=== PATIENT | female | born 1930 | race Caucasian/White ===

== ENCOUNTER 2016-10-22 12:24 | Emergency (ER) | payer MEDICARE, BC ==
[2016-10-22] MEDS ORDERED: Sodium Chloride 0.9% 1,000 ML IV ONE (12:40)
[2016-10-22] MEDS ORDERED: Sodium Chloride 0.9% 10 ML Syringe FLUSH PRN (12:40)
[2016-10-22] MEDS ORDERED: Sodium Chloride 0.9% 2.5 ML Syringe FLUSH PRN (12:40)
--- NOTE | 2016-10-22 12:46 | EDM.PDOC ---
ED HPI GENERAL MEDICAL PROBLEM - General Chief Complaint: General Stated Complaint: NOT FEELING WELL Time Seen by Provider: 10/22/16 12:32 - History of Present Illness INITIAL COMMENTS - FREE TEXT/NARRATIVE: HISTORY AND PHYSICAL: History of present illness: The patient is an 86 y/o female with a history of hypertension hypercholesterolemia who follows at [facility] with Dr. Marie and who received her influenza vaccine this year but who presents today with complaints of generalized weakness fatigue and malaise which started today. Patient states she had a normal day yesterday and ate and drank normally and said she woke up this morning at all morning and this afternoon has felt very drained and weak. She is not dizzy or lightheaded and does not feel like she is going to pass out she feels like her whole body is weak. There is no one extremity is weaker than the others and she also complains of a slight headache. She does not have a cough or chest pain no shortness of breath no sore throat no abdominal pain no vomiting or diarrhea. She also denies specific neck or back pain. Patient has had no urinary complaints and has had normal bowel movements. The patient is very vague about the symptoms and says she can't identify what is triggering all of this but she just feels unlike herself. Patient had only one glass of water today. Review of systems: As per history of present illness and below otherwise all systems reviewed and negative. Past medical history: As per history of present illness and as reviewed below otherwise noncontributory. Surgical history: As per history of present illness and as reviewed below otherwise noncontributory. Social history: No reported history of drug or alcohol abuse. Family history: As per history of present illness and as reviewed below otherwise noncontributory. Physical exam: General: Well-developed well-nourished female who is nontoxic and speaking clearly in the ER. She moves without assistance and her vital signs were noted by me in triage. It should be noted that her skin temperature feels warmer than her documented temperature. HEENT: Atraumatic, normocephalic, pupils reactive, negative for conjunctival pallor or scleral icterus, mucous membranes tacky, throat clear, neck supple, nontender, trachea midline. There is no cervical adenopathy or nuchal rigidity Lungs: Clear to auscultation, breath sounds equal bilaterally, chest nontender. No work or breathing or sensory muscle use no stridor or wheezing Heart: S1S2, regular rhythm and slightly tachycardic rate on my evaluation, negative for clicks, rubs, or JVD. Abdomen: Soft, nondistended, nontender. Rotund abdomen with slightly hypoactive bowel sounds Negative for masses or hepatosplenomegaly. Negative for costovertebral tenderness. Pelvis: Stable nontender. Genitourinary: Deferred. Rectal: Deferred. Extremities: Atraumatic, negative for cords or calf pain. Neurovascular unremarkable. No pedal edema or leg asymmetry Neuro: Awake, alert, oriented. Cranial nerves II through XII unremarkable. Cerebellum unremarkable. sensory unremarkable throughout. Exam nonfocal. Lower extremities with strength 5/5 bilaterally but dorsi and plantar flexion is intact 5/5 inclusive of the great toe. 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 Back: There is no CVA tenderness and no midline step-offs tenderness defects of the thoracic or lumbar spine Skin: He feels warm to touch but is not hot and there is no rashes or lesions appreciated but skin turgor on the upper extremity seems somewhat diminished Diagnostics: EKG CBC CMP lactic acid blood cultures troponin UA urine culture influenza swab chest x-ray CT scan of the head Therapeutics: IV fluids 1328: This case was discussed with the patient's primary care physician Dr. Brayan Ross at [facility]. He states that all of her workup was normal he will arrange to get her clinic appointment tomorrow to followup with her. He understands that at the current time of our conversation all the testing was normal and it continued to be normal that we will plan for discharge. He says he will followup with her. 1408: All testing results were discussed with the patient and family at bedside. I also discussed with them my conversation with Dr. Marie and that he would be happy to see her in followup tomorrow. They're aware that the patient does not meet criteria for admission as there are no objective diagnoses for that and that I advised his hydration rest and reasons to return to the ED Impression: Generalized weakness etiology unclear Definitive disposition and diagnosis as appropriate pending reevaluation and review of above. - Related Data Allergies Allergy/AdvReac Type Severity Reaction Status Date / Time No Known Allergies Allergy Verified 12/01/15 16:45 Home Meds: Home Meds Diltiazem [Cardizem CD] 180 mg PO DAILY 12/01/15 [History] LORazepam 0.5 tab PO BID PRN 12/01/15 [History] Losartan [Cozaar] 50 mg PO DAILY 12/01/15 [History] Simvastatin [Zocor] 10 mg PO BEDTIME 12/01/15 [History] buPROPion HCl [Zyban] 150 mg PO DAILY 12/01/15 [History] Aspirin [Halfprin] 81 mg PO BRK 12/02/15 [History] Levofloxacin [Levaquin] 250 mg PO Q24H #2 tablet 12/03/15 [Rx] Past Medical History HEENT History: Reports: Impaired vision Cardiovascular History: Reports: High cholesterol, Hypertension Neurological History: Reports: Neuropathy, peripheral, Other (see below) Other Neuro History: Lyme's disease- 5 years ago Psychiatric History: Reports: Anxiety, Depression - Infectious Disease History Infectious Disease History: Reports: Measles, Mumps Other Infectious Disease History: childhood - Past Surgical History HEENT Surgical History: Reports: None Cardiovascular Surgical History: Reports: None GI Surgical History: Reports: Cholecystectomy Neurological Surgical History: Reports: None Social & Family History - Family History Family Medical History: Noncontributory Cardiac: Reports: Hypertension, [place] - Tobacco Use Smoking Status *Q: Never Smoker Second Hand Smoke Exposure: No - Recreational Drug Use Recreational Drug Use: No ED ROS GENERAL - Review of Systems Review Of Systems: ROS reveals no pertinent complaints other than HPI. ED EXAM, GENERAL - Physical Exam Exam: See Below (See dictation) Course - Vital Signs Last Recorded V/S: Last Vital Signs Temp 36.2 C 10/22/16 12:39 Pulse 107 H 10/22/16 12:39 Resp 18 10/22/16 12:39 BP 119/66 10/22/16 12:39 Pulse Ox 93 L 10/22/16 12:39 - Orders/Labs/Meds Orders: Active Orders 24 hr Category Date Time Status Cardiac Monitoring [RC] . DIRECTED Care 10/22/16 12:39 Active EKG Documentation Completion [RC] STAT Care 10/22/16 12:39 Active Oxygen Therapy, ED [RC] ASDIRECTED Care 10/22/16 12:39 Active Pulse Oximetry [RC] ASDIRECTED Care 10/22/16 12:39 Active CULTURE BLOOD [BC] Stat Lab 10/22/16 12:50 Received CULTURE BLOOD [BC] Stat Lab 10/22/16 13:05 Received CULTURE URINE [RM] Stat Lab 10/22/16 13:12 Received Sodium Chloride 0.9% [Saline Flush] Med 10/22/16 12:40 Active 10 ml FLUSH ASDIRECTED PRN Sodium Chloride 0.9% [Saline Flush] Med 10/22/16 12:40 Active 2.5 ml FLUSH ASDIRECTED PRN Blood Culture x2 Reflex Set [OM.PC] Stat Oth 10/22/16 12:40 Ordered Saline Lock Insert [OM.PC] Stat Oth 10/22/16 12:39 Ordered Medication Orders Sodium Chloride (Saline Flush) 10 ml FLUSH ASDIRECTED PRN PRN Reason: Keep Vein Open Sodium Chloride (Saline Flush) 2.5 ml FLUSH ASDIRECTED PRN PRN Reason: Keep Vein Open Labs: Laboratory Tests 10/22/16 10/22/16 10/22/16 Range/Units 12:50 12:50 12:50 WBC 5.88 (4.0-11.0) K/uL RBC 4.20 L (4.30-5.90) M/uL Hgb 12.5 (12.0-16.0) g/dL Hct 38.4 (36.0-46.0) % MCV 91.4 (80.0-98.0) fL MCH 29.8 (27.0-32.0) pg MCHC 32.6 (31.0-37.0) g/dL RDW Std Deviation 45.9 (28.0-62.0) fl RDW Coeff of Kyara 14 (11.0-15.0) % Plt Count 222 (150-400) K/uL MPV 10.90 (7.40-12.00) fL Neut % (Auto) 79.1 (48.0-80.0) % Lymph % (Auto) 13.1 L (16.0-40.0) % [place] % (Auto) 7.1 (0.0-15.0) % Eos % (Auto) 0.5 (0.0-7.0) % Baso % (Auto) 0.2 (0.0-1.5) % Neut # 4.7 (1.4-5.7) K/uL Lymph # 0.8 (0.6-2.4) K/uL [place] # 0.4 (0.0-0.8) K/uL Eos # 0.0 (0.0-0.7) K/uL Baso # 0.0 (0.0-0.1) K/uL Nucleated RBC % 0.0 /100WBC Nucleated RBCs # 0 K/uL Lactate 2.0 (0.20-2.00) mmol/L Sodium 139 (136-146) mmol/L Potassium 4.0 (3.5-5.1) mmol/L Chloride 106 (98-110) mmol/L Carbon Dioxide 23 (21-31) mmol/L BUN 16 (6.0-23.0) mg/dL Creatinine 1.0 (0.6-1.5) mg/dL Est Cr Clr Drug Dosing 33.41 mL/min Estimated GFR (MDRD) 52.6 ml/min Glucose 136 H (60-110) mg/dL Calcium 9.3 (8.8-10.8) mg/dL Total Bilirubin 0.4 (0.1-1.5) mg/dL AST 21 (5-40) IU/L ALT 10 (8-54) IU/L Alkaline Phosphatase 77 (40-150) Troponin I (0.0-0.29) NG/ML Total Protein 7.6 (6.0-8.0) g/dL Albumin 3.9 (3.4-4.8) g/dL Globulin 3.7 H (2.0-3.5) g/dL Albumin/Globulin Ratio 1.1 L (1.3-2.8) Urine Color Urine Appearance Urine pH (5.0-8.0) Ur Specific Mor[place] (1.001-1.035) Urine Protein (NEGATIVE) mg/dL Urine Glucose (UA) (NEGATIVE) mg/dL Urine Ketones (NEGATIVE) mg/dL Urine Occult Blood (NEGATIVE) Urine Nitrite (NEGATIVE) Urine Bilirubin (NEGATIVE) Urine Urobilinogen (<2.0) EU/dL Ur Leukocyte Esterase (NEGATIVE) Urine RBC (0-2/HPF) Urine WBC (0-5/HPF) Ur Epithelial Cells (NONE-FEW) Amorphous Sediment (NEGATIVE) Urine Bacteria (NEGATIVE) 10/22/16 10/22/16 Range/Units 12:50 13:12 WBC (4.0-11.0) K/uL RBC (4.30-5.90) M/uL Hgb (12.0-16.0) g/dL Hct (36.0-46.0) % MCV (80.0-98.0) fL MCH (27.0-32.0) pg MCHC (31.0-37.0) g/dL RDW Std Deviation (28.0-62.0) fl RDW Coeff of Kyara (11.0-15.0) % Plt Count (150-400) K/uL MPV (7.40-12.00) fL Neut % (Auto) (48.0-80.0) % Lymph % (Auto) (16.0-40.0) % [place] % (Auto) (0.0-15.0) % Eos % (Auto) (0.0-7.0) % Baso % (Auto) (0.0-1.5) % Neut # (1.4-5.7) K/uL Lymph # (0.6-2.4) K/uL [place] # (0.0-0.8) K/uL Eos # (0.0-0.7) K/uL Baso # (0.0-0.1) K/uL Nucleated RBC % /100WBC Nucleated RBCs # K/uL Lactate (0.20-2.00) mmol/L Sodium (136-146) mmol/L Potassium (3.5-5.1) mmol/L Chloride (98-110) mmol/L Carbon Dioxide (21-31) mmol/L BUN (6.0-23.0) mg/dL Creatinine (0.6-1.5) mg/dL Est Cr Clr Drug Dosing mL/min Estimated GFR (MDRD) ml/min Glucose (60-110) mg/dL Calcium (8.8-10.8) mg/dL Total Bilirubin (0.1-1.5) mg/dL AST (5-40) IU/L ALT (8-54) IU/L Alkaline Phosphatase (40-150) Troponin I < 0.10 (0.0-0.29) NG/ML Total Protein (6.0-8.0) g/dL Albumin (3.4-4.8) g/dL Globulin (2.0-3.5) g/dL Albumin/Globulin Ratio (1.3-2.8) Urine Color YELLOW Urine Appearance HAZY Urine pH 6.0 (5.0-8.0) Ur Specific [place] 1.015 (1.001-1.035) Urine Protein NEGATIVE (NEGATIVE) mg/dL Urine Glucose (UA) NEGATIVE (NEGATIVE) mg/dL Urine Ketones NEGATIVE (NEGATIVE) mg/dL Urine Occult Blood NEGATIVE (NEGATIVE) Urine Nitrite NEGATIVE (NEGATIVE) Urine Bilirubin NEGATIVE (NEGATIVE) Urine Urobilinogen 0.2 (<2.0) EU/dL Ur Leukocyte Esterase SMALL (NEGATIVE) Urine RBC 0-2 (0-2/HPF) Urine WBC 0-3 (0-5/HPF) Ur Epithelial Cells OCCASIONAL (NONE-FEW) Amorphous Sediment FEW (NEGATIVE) Urine Bacteria FEW (NEGATIVE) Meds: Medications Generic Name Dose Route Start Last Admin Trade Name Freq PRN Reason Stop Dose Admin Sodium Chloride 10 ml 10/22/16 12:40 Saline Flush FLUSH ASDIRECTED PRN Keep Vein Open Sodium Chloride 2.5 ml 10/22/16 12:40 Saline Flush FLUSH ASDIRECTED PRN Keep Vein Open Discontinued Medications Generic Name Dose Route Start Last Admin Trade Name Freq PRN Reason Stop Dose Admin Sodium Chloride 1,000 mls @ 999 mls/hr 10/22/16 12:40 10/22/16 12:53 Normal Saline IV 10/22/16 13:40 999 mls/hr STAT ONE Administration Departure - Departure Time of Disposition: 14:14 Disposition: Home, Self-Care 01 Condition: good Clinical Impression: Generalized weakness Referrals: Vic Bunch MD [Primary Care Provider] - Forms: ED Department Discharge Additional Instructions: The following information is given to patients seen in the emergency department who are being discharged to home. This information is to outline your options for follow-up care. We provide all patients seen in our emergency department with a follow-up referral. The need for follow-up, as well as the timing and circumstances, are variable depending upon the specifics of your emergency department visit. If you don't have a primary care physician on staff, we will provide you with a referral. We always advise you to contact your personal physician following an emergency department visit to inform them of the circumstance of the visit and for follow-up with them and/or the need for any referrals to a consulting specialist. The emergency department will also refer you to a specialist when appropriate. This referral assures that you have the opportunity for followup care with a specialist. All of these measure are taken in an effort to provide you with optimal care, which includes your followup. Under all circumstances we always encourage you to contact your private physician who remains a resource for coordinating your care. When calling for followup care, please make the office aware that this follow-up is from your recent emergency room visit. If for any reason you are refused follow-up, please contact the [facility] emergency department at and ask to speak to the emergency department charge nurse. [address] [place] [address] Please call for followup appointment with her provider in the clinic tomorrow. Please push hydration rest and try to eat healthy meals. Return to ER as needed and as discussed - My Orders Last 24 Hours: My Active Orders 10/22/16 12:39 Cardiac Monitoring [RC] . DIRECTED EKG Documentation Completion [RC] STAT Oxygen Therapy, ED [RC] ASDIRECTED Pulse Oximetry [RC] ASDIRECTED Saline Lock Insert [OM.PC] Stat 10/22/16 12:40 Sodium Chloride 0.9% [Saline Flush] 10 ml FLUSH ASDIRECTED PRN Sodium Chloride 0.9% [Saline Flush] 2.5 ml FLUSH ASDIRECTED PRN Blood Culture x2 Reflex Set [OM.PC] Stat 10/22/16 12:50 CULTURE BLOOD [BC] Stat 10/22/16 13:05 CULTURE BLOOD [BC] Stat 10/22/16 13:12 CULTURE URINE [RM] Stat - Assessment/Plan Last 24 Hours: My Active Orders 10/22/16 12:39 Cardiac Monitoring [RC] . DIRECTED EKG Documentation Completion [RC] STAT Oxygen Therapy, ED [RC] ASDIRECTED Pulse Oximetry [RC] ASDIRECTED Saline Lock Insert [OM.PC] Stat 10/22/16 12:40 Sodium Chloride 0.9% [Saline Flush] 10 ml FLUSH ASDIRECTED PRN Sodium Chloride 0.9% [Saline Flush] 2.5 ml FLUSH ASDIRECTED PRN Blood Culture x2 Reflex Set [OM.PC] Stat 10/22/16 12:50 CULTURE BLOOD [BC] Stat 10/22/16 13:05 CULTURE BLOOD [BC] Stat 10/22/16 13:12 CULTURE URINE [RM] Stat
--- NOTE | 2016-10-22 13:31 | CT ---
EXAMINATION: Non contrast CT head. Coronal and sagittal reformats. HISTORY: Pain FINDINGS: No evidence of intra or extra axial hemorrhage, mass, midline shift, hydrocephalus or edema. There is moderate generalized atrophy. No hypoattenuation changes in the major vascular territories to suggest acute infarct. No abnormal intracranial calcifications are detected. No evidence of substantial vascular calcifications. Paranasal sinuses and mastoid air cells are well aerated without substantial findings. The pituitar y fossa appears unremarkable. The calvarium is intact. No evidence of skull fracture. IMPRESSION: Generalized atrophy without acute intracranial findings.
--- NOTE | 2016-10-22 13:36 | CR ---
EXAMINATION: Two-view chest (PA and Lateral views). HISTORY: Shortness of breath. FINDINGS: The trachea is midline. The cardiomediastinal silhouette is within normal limits. No pulmonary infil trates, effusions or pneumothorax. Osseous structures appear unremarkable. IMPRESSION: No acute cardiopulmonary process.
[2016-10-22 14:29] VITALS: BP 120/63
== END 2016-10-22 14:25 | disposition home or self-care (01) ==
LOC: MW.ED 12:24
DX: R53.1 Weakness (principal); E78.00 Pure hypercholesterolemia, unspecified; H54.7 Unspecified visual loss; I10 Essential (primary) hypertension; Z79.899 Other long term (current) drug therapy; Z79.82 Long term (current) use of aspirin
CPT/HCPCS: 36415; 70450; 71020; 80053; 81001; 83605; 84484; 85025; 87040; 87086; 87088; 87186; 87804; 93005; 96360; 99285; J7040; 99284

== ENCOUNTER 2018-04-04 21:42 | Observation (INO) | payer MEDICARE, BC ==
[2018-04-04] MEDS ORDERED: Sodium Chloride 0.9% 10 ML Syringe FLUSH PRN (21:50)
[2018-04-04] MEDS ORDERED: Sodium Chloride 0.9% 2.5 ML Syringe FLUSH PRN ×2 (21:50)
[2018-04-04] MEDS ORDERED: Sodium Chloride 0.9% 1,000 ML IV ONE ×2 (21:50→22:36)
--- NOTE | 2018-04-04 22:08 | EDM.PDOC ---
ED HPI GENERAL MEDICAL PROBLEM - General Chief Complaint: Lower Extremity Injury/Pain Stated Complaint: CAME BY AMBULANCE Time Seen by Provider: 04/04/18 21:50 Source of Information: Reports: Patient History Limitations: Reports: No Limitations - History of Present Illness INITIAL COMMENTS - FREE TEXT/NARRATIVE: HISTORY AND PHYSICAL: History of present illness: 88-year-old female brought into emergency room by EMS for fall. Patient states that she slipped and fell backwards landing on her right hip. She had immediate pain so-called ambulance for further assessment. She denies any shortness of breath or chest pain prior to or after the event. She did not lose consciousness or hit her head. She fell from a standing position. There appears to be shorting and externally rotation of right lower extremity. Neurovascular intact. Review of systems: As per history of present illness and below otherwise all systems reviewed and negative. Past medical history: As per history of present illness and as reviewed below otherwise noncontributory. Surgical history: As per history of present illness and as reviewed below otherwise noncontributory. Social history: No reported history of drug or alcohol abuse. Family history: As per history of present illness and as reviewed below otherwise noncontributory. Physical exam: HEENT: Atraumatic, normocephalic, pupils reactive, negative for conjunctival pallor or scleral icterus, mucous membranes moist, throat clear, neck supple, nontender, trachea midline. Lungs: Clear to auscultation, breath sounds equal bilaterally, chest nontender. Heart: S1S2, regular, negative for clicks, rubs, or JVD. Abdomen: Soft, nondistended, nontender. Negative for masses or hepatosplenomegaly. Negative for costovertebral tenderness. Pelvis: Stable nontender. Genitourinary: Deferred. Rectal: Deferred. Extremities: See above , negative for cords or calf pain. Neurovascular unremarkable. Neuro: Awake, alert, oriented. Cranial nerves II through XII unremarkable. Cerebellum unremarkable. Motor and sensory unremarkable throughout. Exam nonfocal. Diagnostics: CBC, CMP, troponin, chest x-ray, EKG Therapeutics: [] Impression: Right hip fracture Plan: Did discuss the case with Dr. Cleary, orthopedic surgery, who will plan for surgery tomorrow. I also Talked with Dr. King hospitalist who will admit patient for Dr. Cleary and medically evaluate. Definitive disposition and diagnosis as appropriate pending reevaluation and review of above. R hip Pain Score (Numeric/FACES): 7 - Related Data Allergies Allergy/AdvReac Type Severity Reaction Status Date / Time No Known Allergies Allergy Verified 04/04/18 21:55 Home Meds: Home Meds Diltiazem [Cardizem CD] 180 mg PO DAILY 12/01/15 [History] LORazepam 0.5 tab PO BID PRN 12/01/15 [History] Losartan [Cozaar] 100 mg PO DAILY 12/01/15 [History] Simvastatin [Zocor] 10 mg PO BEDTIME 12/01/15 [History] buPROPion HCl [Zyban] 150 mg PO DAILY 12/01/15 [History] Aspirin [Halfprin] 81 mg PO BRK 12/02/15 [History] Citalopram [Citalopram HBr] 20 mg PO DAILY 04/04/18 [History] Past Medical History HEENT History: Reports: Impaired Vision Cardiovascular History: Reports: High Cholesterol, Hypertension Neurological History: Reports: Neuropathy, Peripheral, Other (See Below) Other Neuro History: Lyme's disease- 5 years ago Psychiatric History: Reports: Anxiety, Depression - Infectious Disease History Infectious Disease History: Reports: Measles, Mumps Other Infectious Disease History: childhood - Past Surgical History GI Surgical History: Reports: Cholecystectomy Social & Family History - Family History Family Medical History: Noncontributory Cardiac: Reports: Hypertension, [place] - Tobacco Use Smoking Status *Q: Never Smoker - Caffeine Use Caffeine Use: Reports: None - Recreational Drug Use Recreational Drug Use: No Review of Systems - Review of Systems Review Of Systems: ROS reveals no pertinent complaints other than HPI. ED EXAM, GENERAL - Physical Exam Exam: See Below Course - Vital Signs Last Recorded V/S: Last Vital Signs Temp 97.9 F 04/04/18 21:51 Pulse 86 04/04/18 23:15 Resp 12 04/04/18 23:15 BP 126/48 L 04/04/18 23:15 Pulse Ox 92 L 04/04/18 23:15 - Orders/Labs/Meds Orders: Active Orders 24 hr Category Date Time Status Cardiac Monitoring [RC] . DIRECTED Care 04/04/18 21:50 Active EKG Documentation Completion [RC] STAT Care 04/04/18 21:51 Active Oxygen Therapy [RC] ASDIRECTED Care 04/04/18 21:50 Active Pulse Oximetry [RC] ASDIRECTED Care 04/04/18 21:50 Active Chest 1V Frontal [CR] Stat Exams 04/04/18 21:50 Taken Hip Min 2V or 3V w Pelvis Rt [CR] Stat Exams 04/04/18 21:52 Taken Pelvis wo Cont [CT] Stat Exams 04/04/18 23:22 Ordered CULTURE URINE [RM] Stat Lab 04/04/18 22:36 Received INR,PT,PROTHROMBIN TIME [COAG] Stat Lab 04/04/18 23:28 Ordered TYPE AND SCREEN [BBK] Stat Lab 04/04/18 23:28 Ordered UA W/MICROSCOPIC [URIN] Stat Lab 04/04/18 22:36 Ordered Sodium Chloride 0.9% [Normal Saline] 1,000 ml Med 04/04/18 22:36 Active IV STAT Sodium Chloride 0.9% [Saline Flush] Med 04/04/18 21:50 Active 10 ml FLUSH ASDIRECTED PRN Sodium Chloride 0.9% [Saline Flush] Med 04/04/18 21:50 Active 2.5 ml FLUSH ASDIRECTED PRN Sodium Chloride 0.9% [Saline Flush] Med 04/04/18 21:50 Active 2.5 ml FLUSH ASDIRECTED PRN Saline Lock Insert [OM.PC] Stat Oth 04/04/18 21:50 Ordered Medication Orders Sodium Chloride (Normal Saline) 1,000 mls @ 999 mls/hr IV STAT ONE Stop: 04/04/18 23:36 Last Admin: 04/04/18 22:39 Dose: 999 mls/hr Sodium Chloride (Saline Flush) 2.5 ml FLUSH ASDIRECTED PRN PRN Reason: Keep Vein Open Last Admin: 04/04/18 22:39 Dose: 2.5 ml Sodium Chloride (Saline Flush) 10 ml FLUSH ASDIRECTED PRN PRN Reason: Keep Vein Open Last Admin: 04/04/18 22:39 Dose: 10 ml Sodium Chloride (Saline Flush) 2.5 ml FLUSH ASDIRECTED PRN PRN Reason: Keep Vein Open Last Admin: 04/04/18 22:40 Dose: 2.5 ml Labs: Laboratory Tests 04/04/18 04/04/18 04/04/18 Range/Units 22:02 22:02 22:02 WBC 5.45 (4.0-11.0) K/uL RBC 4.00 L (4.30-5.90) M/uL Hgb 11.9 L (12.0-16.0) g/dL Hct 36.2 (36.0-46.0) % MCV 90.5 (80.0-98.0) fL MCH 29.8 (27.0-32.0) pg MCHC 32.9 (31.0-37.0) g/dL RDW Std Deviation 46.9 (28.0-62.0) fl RDW Coeff of Kyara 14 (11.0-15.0) % Plt Count 208 (150-400) K/uL MPV 11.30 (7.40-12.00) fL Neut % (Auto) 61.7 (48.0-80.0) % Lymph % (Auto) 25.0 (16.0-40.0) % Edwards % (Auto) 8.3 (0.0-15.0) % Eos % (Auto) 4.4 (0.0-7.0) % Baso % (Auto) 0.6 (0.0-1.5) % Neut # (Auto) 3.4 (1.4-5.7) K/uL Lymph # (Auto) 1.4 (0.6-2.4) K/uL Edwards # (Auto) 0.5 (0.0-0.8) K/uL Eos # (Auto) 0.2 (0.0-0.7) K/uL Baso # (Auto) 0.0 (0.0-0.1) K/uL Nucleated RBC % 0.0 /100WBC Nucleated RBCs # 0 K/uL Sodium 140 (136-145) mmol/L Potassium 4.0 (3.5-5.1) mmol/L Chloride 104 (98-107) mmol/L Carbon Dioxide 27.9 (21.0-32.0) mmol/L BUN 17 (7.0-18.0) mg/dL Creatinine 1.0 (0.6-1.0) mg/dL Est Cr Clr Drug Dosing 30.76 mL/min Estimated GFR (MDRD) 52.3 ml/min Glucose 97 (74-106) mg/dL Calcium 8.4 L (8.5-10.1) mg/dL Total Bilirubin 0.2 (0.2-1.0) mg/dL AST 17 (15-37) IU/L ALT 20 (14-63) IU/L Alkaline Phosphatase 85 (46-116) U/L Troponin I < 0.050 (0.000-0.056) ng/mL Total Protein 7.0 (6.4-8.2) g/dL Albumin 3.4 (3.4-5.0) g/dL Globulin 3.6 H (2.0-3.5) g/dL Albumin/Globulin Ratio 0.9 L (1.3-2.8) Urine Color Urine Appearance Urine pH (5.0-8.0) Ur Specific [place] (1.001-1.035) Urine Protein (NEGATIVE) mg/dL Urine Glucose (UA) (NEGATIVE) mg/dL Urine Ketones (NEGATIVE) mg/dL Urine Occult Blood (NEGATIVE) Urine Nitrite (NEGATIVE) Urine Bilirubin (NEGATIVE) Urine Urobilinogen (<2.0) EU/dL Ur Leukocyte Esterase (NEGATIVE) Urine RBC (0-2/HPF) Urine WBC (0-5/HPF) Ur Epithelial Cells (NONE-FEW) Urine Bacteria (NEGATIVE) 04/04/18 Range/Units 22:36 WBC (4.0-11.0) K/uL RBC (4.30-5.90) M/uL Hgb (12.0-16.0) g/dL Hct (36.0-46.0) % MCV (80.0-98.0) fL MCH (27.0-32.0) pg MCHC (31.0-37.0) g/dL RDW Std Deviation (28.0-62.0) fl RDW Coeff of Kyara (11.0-15.0) % Plt Count (150-400) K/uL MPV (7.40-12.00) fL Neut % (Auto) (48.0-80.0) % Lymph % (Auto) (16.0-40.0) % Edwards % (Auto) (0.0-15.0) % Eos % (Auto) (0.0-7.0) % Baso % (Auto) (0.0-1.5) % Neut # (Auto) (1.4-5.7) K/uL Lymph # (Auto) (0.6-2.4) K/uL Edwards # (Auto) (0.0-0.8) K/uL Eos # (Auto) (0.0-0.7) K/uL Baso # (Auto) (0.0-0.1) K/uL Nucleated RBC % /100WBC Nucleated RBCs # K/uL Sodium (136-145) mmol/L Potassium (3.5-5.1) mmol/L Chloride (98-107) mmol/L Carbon Dioxide (21.0-32.0) mmol/L BUN (7.0-18.0) mg/dL Creatinine (0.6-1.0) mg/dL Est Cr Clr Drug Dosing mL/min Estimated GFR (MDRD) ml/min Glucose (74-106) mg/dL Calcium (8.5-10.1) mg/dL Total Bilirubin (0.2-1.0) mg/dL AST (15-37) IU/L ALT (14-63) IU/L Alkaline Phosphatase (46-116) U/L Troponin I (0.000-0.056) ng/mL Total Protein (6.4-8.2) g/dL Albumin (3.4-5.0) g/dL Globulin (2.0-3.5) g/dL Albumin/Globulin Ratio (1.3-2.8) Urine Color YELLOW Urine Appearance CLEAR Urine pH 6.0 (5.0-8.0) Ur Specific [place] 1.020 (1.001-1.035) Urine Protein NEGATIVE (NEGATIVE) mg/dL Urine Glucose (UA) NEGATIVE (NEGATIVE) mg/dL Urine Ketones NEGATIVE (NEGATIVE) mg/dL Urine Occult Blood NEGATIVE (NEGATIVE) Urine Nitrite NEGATIVE (NEGATIVE) Urine Bilirubin NEGATIVE (NEGATIVE) Urine Urobilinogen 0.2 (<2.0) EU/dL Ur Leukocyte Esterase NEGATIVE (NEGATIVE) Urine RBC 0-1 (0-2/HPF) Urine WBC 0-2 (0-5/HPF) Ur Epithelial Cells FEW (NONE-FEW) Urine Bacteria FEW (NEGATIVE) Meds: Medications Generic Name Dose Route Start Last Admin Trade Name Freq PRN Reason Stop Dose Admin Sodium Chloride 1,000 mls @ 999 mls/hr 04/04/18 22:36 04/04/18 22:39 Normal Saline IV 04/04/18 23:36 999 mls/hr STAT ONE Administration Sodium Chloride 2.5 ml 04/04/18 21:50 04/04/18 22:39 Saline Flush FLUSH 2.5 ml ASDIRECTED PRN Administration Keep Vein Open Sodium Chloride 10 ml 04/04/18 21:50 04/04/18 22:39 Saline Flush FLUSH 10 ml ASDIRECTED PRN Administration Keep Vein Open Sodium Chloride 2.5 ml 04/04/18 21:50 04/04/18 22:40 Saline Flush FLUSH 2.5 ml ASDIRECTED PRN Administration Keep Vein Open Discontinued Medications Generic Name Dose Route Start Last Admin Trade Name Freq PRN Reason Stop Dose Admin Sodium Chloride 1,000 mls @ 999 mls/hr 04/04/18 21:50 04/04/18 22:40 Normal Saline IV 04/04/18 22:50 Not Given .Bolus ONE Departure - Departure Time of Disposition: 23:37 Disposition: Admitted As Inpatient 66 Condition: Good Clinical Impression: Closed right hip fracture Qualifiers: Encounter type: initial encounter Qualified Code(s): S72.001A - Fracture of unspecified part of neck of right femur, initial encounter for closed fracture - Discharge Information Referrals: PCP,None [Primary Care Provider] - Forms: ED Department Discharge - My Orders Last 24 Hours: My Active Orders 04/04/18 21:50 Cardiac Monitoring [RC] . DIRECTED Oxygen Therapy [RC] ASDIRECTED Pulse Oximetry [RC] ASDIRECTED Chest 1V Frontal [CR] Stat Sodium Chloride 0.9% [Saline Flush] 10 ml FLUSH ASDIRECTED PRN Sodium Chloride 0.9% [Saline Flush] 2.5 ml FLUSH ASDIRECTED PRN Sodium Chloride 0.9% [Saline Flush] 2.5 ml FLUSH ASDIRECTED PRN Saline Lock Insert [OM.PC] Stat 04/04/18 21:51 EKG Documentation Completion [RC] STAT 04/04/18 21:52 Hip Min 2V or 3V w Pelvis Rt [CR] Stat 04/04/18 22:36 CULTURE URINE [RM] Stat UA W/MICROSCOPIC [URIN] Stat Sodium Chloride 0.9% [Normal Saline] 1,000 ml IV STAT 04/04/18 23:22 Pelvis wo Cont [CT] Stat 04/04/18 23:28 INR,PT,PROTHROMBIN TIME [COAG] Stat TYPE AND SCREEN [BBK] Stat - Assessment/Plan Last 24 Hours: My Active Orders 04/04/18 21:50 Cardiac Monitoring [RC] . DIRECTED Oxygen Therapy [RC] ASDIRECTED Pulse Oximetry [RC] ASDIRECTED Chest 1V Frontal [CR] Stat Sodium Chloride 0.9% [Saline Flush] 10 ml FLUSH ASDIRECTED PRN Sodium Chloride 0.9% [Saline Flush] 2.5 ml FLUSH ASDIRECTED PRN Sodium Chloride 0.9% [Saline Flush] 2.5 ml FLUSH ASDIRECTED PRN Saline Lock Insert [OM.PC] Stat 04/04/18 21:51 EKG Documentation Completion [RC] STAT 04/04/18 21:52 Hip Min 2V or 3V w Pelvis Rt [CR] Stat 04/04/18 22:36 CULTURE URINE [RM] Stat UA W/MICROSCOPIC [URIN] Stat Sodium Chloride 0.9% [Normal Saline] 1,000 ml IV STAT 04/04/18 23:22 Pelvis wo Cont [CT] Stat 04/04/18 23:28 INR,PT,PROTHROMBIN TIME [COAG] Stat TYPE AND SCREEN [BBK] Stat
[2018-04-04] MEDS ORDERED: Lactated Ringers 1,000 ML IV SCH (23:45)
[2018-04-05] MEDS: Lactated Ringers 1,000 ML IV SCH ×2 (00:47→11:49)
[2018-04-05] MEDS: Morphine 2 MG/ML Syringe IVPUSH PRN ×3 (00:47→11:28)
[2018-04-05] MEDS ORDERED: ceFAZolin 2 GM in Premix Bag 1 BAG IV ONE (07:57)
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
[2018-04-05 12:02] VITALS: BP 148/66
--- NOTE | 2018-04-06 17:41 | CR ---
EXAM DATE: 04/04/18 PATIENT'S AGE: 88 Patient: DEE DEE GASTON Facility: [place], [place] Site . Site : 1930 Study: XRay Extremity Right [id number]/11/2018 11:26:42 PM Ordering Physician: Jarrell Donaldson Final Report: INDICATION: Trauma TECHNIQUE: AP pelvis and two views right hip COMPARISON: None FINDINGS: Bones: Right intertrochanteric fracture. Joint spaces: Unremarkable. Soft tissues: Unremarkable. IMPRESSION: Right intertrochanteric fracture. Dictated by Abebe Grey MD @ 04/04/2018 11:30:26 PM Dictated by: Abebe Grey MD @ 04/04/2018 23:30:31 (Electronic Signature) Report Signed by Proxy. ENRIQUETA
--- NOTE | 2018-04-06 17:41 | CR ---
EXAM DATE: 04/04/18 PATIENT'S AGE: 88 Patient: DEE DEE GASTON Facility: [place], [place] Site . Site : 1930 Study: XRay Chest [id number]/11/2018 11:22:02 PM Ordering Physician: Doctor Cuevas Final Report: INDICATION: shortness of breath TECHNIQUE: Chest 1 view. COMPARISON: None. FINDINGS: Cardiovascular and mediastinum: Heart size and vasculature are normal in caliber and appearance. Mediastinum is within normal limits. Lungs and pleural space: Lungs are clear. No sign of infiltrate or mass. No sign of pleural effusion. No pneumothorax. Bones and soft tissues: No significant findings. IMPRESSION: Unremarkable chest. Dictated by: Abebe Grey MD @ 04/04/2018 23:29:10 (Electronic Signature) Report Signed by Proxy. [facility] HOSPITALJacky
--- NOTE | 2018-04-06 17:42 | CT ---
EXAM DATE: 04/04/18 PATIENT'S AGE: 88 Patient: DEE DEE GASTON Facility: [place], [place] Site . Site : 1930 Study: CT Pelvis [id number]/11/2018 11:55:01 PM Ordering Physician: Jarrell Donaldson Final Report: INDICATION: Trauma. TECHNIQUE: Noncontrast axial images through the pelvis with sagittal and coronal reconstructions. COMPARISON: Radiographs from 04/04/2018. FINDINGS: Bone density is diffusely diminished. There is an acute, comminuted fracture of the right proximal femur, with involvement of the femoral neck and intertrochanteric region. The femoral neck component is nondisplaced. There is mild displacement of the intertrochanteric component. No other fractures are identified. There are moderate to advanced degenerative changes noted in the visualized lower lumbar spine, including low-grade degenerative anterolisthesis at L4-5. Low-grade degenerative changes are seen in both sacroiliac joints, pubic symphysis, and both hip joints. There is a small supraumbilical hernia, which contains a portion of the colon. No evidence of an acute complication. Scattered colonic diverticulosis is noted , with severe involvement of the rectosigmoid colon. Cortez catheter is in place. There are small fat containing bilateral inguinal hernias. 4.2 cm cyst is seen in the right ovary. Atherosclerotic changes are noted. There is partial visualization of a 6.3 centimeter left renal cyst IMPRESSION: 1. Acute, mildly displaced and mildly comminuted fracture involving the proximal right femur as described above. 2. Numerous incidental findings as noted, including a 4.2 cm right ovarian cyst. Recommend further evaluation/characterization of this finding with ultrasound on a nonemergent basis (and/or comparison with prior studies of this region if available). Please note that all CT scans at this facility use dose modulation, iterative reconstruction, and/or weight-based dosing when appropriate to reduce radiation dose to as low as reasonably achievable. Dictated by Robbin Mariscal MD @ Apr 06 2018 8:40AM (Electronic Signature) Report Signed by Proxy. ENRIQUETA
== END 2018-04-05 11:48 ==
LOC: MW.ED 21:42 → MW.MS 23:43
PROVIDERS: ADMIT Internal Medicine; ATTEND Internal Medicine
DX: S72.141A Displaced intertrochanteric fracture of right femur, initial encounter for closed fracture (principal); I10 Essential (primary) hypertension; E66.9 Obesity, unspecified; E78.5 Hyperlipidemia, unspecified; G62.9 Polyneuropathy, unspecified; I25.2 Old myocardial infarction; F41.9 Anxiety disorder, unspecified; F32.9 Major depressive disorder, single episode, unspecified; Z53.09 Procedure and treatment not carried out because of other contraindication; Z79.82 Long term (current) use of aspirin; Z79.899 Other long term (current) drug therapy; W01.0XXA Fall on same level from slipping, tripping and stumbling without subsequent striking against object, initial encounter
CPT/HCPCS: 36415; 71045; 72192; 73502; 80048; 80053; 81001; 84484; 85025; 85610; 86850; 86900; 86901; 87086; 93005; 96361; 96374; 96376; 99285; G0378; J2270; J7040; J7120; 96360

== ENCOUNTER 2019-05-13 17:25 | Emergency (ER) | payer MEDICARE, BC ==
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
[2019-05-13 18:25] VITALS: BP 111/66; PULSE 97
[2019-05-13 18:28] LABS: CARBON DIOXIDE,CO2 24.7 mmol/L (21.0-32.0); POTASSIUM,K 4.5 mmol/L (3.5-5.1)
== END 2019-05-13 18:18 | disposition home or self-care (01) ==
LOC: MW.ED 17:25
DX: K64.4 Residual hemorrhoidal skin tags (principal); I10 Essential (primary) hypertension; E78.00 Pure hypercholesterolemia, unspecified; F41.9 Anxiety disorder, unspecified; F32.9 Major depressive disorder, single episode, unspecified; E66.9 Obesity, unspecified; Z68.29 Body mass index [BMI] 29.0-29.9, adult; Z79.82 Long term (current) use of aspirin; Z79.899 Other long term (current) drug therapy
CPT/HCPCS: 36415; 80053; 81001; 85025; 87086; 99284